=== PATIENT | female | born 1960 | race Two or more races ===

== ENCOUNTER 2017-04-18 04:04 | Observation (INO) | payer BC ==
[~2017-04-18] VITALS: Ht 149.9 cm; Wt 68.9 kg
[2017-04-18 05:40] LABS: Basophils # (auto) 0.1 uL; Basophils % (auto) 0.5 % (0.0-2.0); Eosinophils # (auto) 0 uL; Eosinophils % (auto) 0.3 % (0.0-7.0); Hematocrit 41.4 % (36.0-46.0); Hemoglobin 14.4 g/dL (12.2-16.2); Lymphocytes # (auto) 1.2 uL; Lymphocytes % (auto) 9.3 % (10.0-50.0); Mean Corpuscular Hemoglobin 30.5 pg (28.0-32.0); Mean Corpuscular Hgb Conc. 34.9 g/dL (32.0-36.0); Mean Corpuscular Volume 87.4 fL (80.0-100.0); Monocytes # (auto) 0.8 uL; Monocytes % (auto) 6.2 % (0.0-12.0); Neutrophils # (auto) 10.6 uL; Neutrophils % (auto) 83.7 % (37.0-80.0); Nucleated Red Blood Cells % 0.1 %; Platelet Count (auto) 334 10^3/uL (140-450); Red Cell Distribution Width 11.9 % (11.8-14.3); White Blood Cell 12.6 10^3/uL (4.4-10.8)
[2017-04-18 05:53] LABS: BUN/Creatinine Ratio 13.4; Bilirubin, Total 0.6 mg/dL (0.2-1.0); Calcium 8.8 mg/dL (8.5-10.1); Total Protein 7.7 g/dL (6.4-8.2)
[2017-04-18] MEDS ORDERED: ONDANSETRON HCL 4 MG/2 ML VIAL IV ONE (08:00)
[2017-04-18] MEDS ORDERED: MORPHINE SULFATE 4 MG/ML SYRG IV ONE (08:00)
[2017-04-18] MEDS ORDERED: SODIUM CHLORIDE 0.9% 1,000 ML IV ONE ×2 (08:14)
[2017-04-18] MEDS ORDERED: methylPREDNISolone SOD SUCC 125 MG/2 ML VL IV ONE (08:15)
[2017-04-18] MEDS ORDERED: PIPERACILLIN-TAZOB 3.375GM 50 ML IV ONE (08:15)
[2017-04-18] MEDS ORDERED: CLINDAMYCIN 600MG IV 50 ML IV ONE (08:15)
[2017-04-18] MEDS ORDERED: POTASSIUM CHL 10% (20 MEQ/15ML) 15ml ORAL SOLN PO ONE (08:30)
[2017-04-18] MEDS ORDERED: IOHEXOL 300 MG/ML 100ML BOTTLE IJ ONE (10:01)
[2017-04-18 10:11] LABS: Urine RBC None Seen /hpf (0 - 4)
[2017-04-18 10:29] LABS: Urine Bilirubin Negative (Negative); Urine Blood Negative /uL (Negative); Urine Color Yellow (Yellow); Urine Glucose 4+ mg/dL (Normal); Urine Ketone 4+ (Negative); Urine Mucus FEW (None Seen); Urine Nitrite Negative (Negative); Urine Squamous Epithelial Cell FEW /hpf (<5); Urine Urobilinogen Normal (Negative); Urine pH 5.5 (5.0-8.0)
[2017-04-18] MEDS ORDERED: InsuLIN REG 1unit/0.01ml Soln (100units/ml) IV ONE (12:15)
[2017-04-18] MEDS ORDERED: InsuLIN REG 1unit/0.01ml Soln (100units/ml) SC ONE (12:15)
== END 2017-04-18 13:26 | disposition left against medical advice (07) | DRG 603 ==
LOC: ER 04:07 → OVERFLOW 12:09 → ER 13:26
PROVIDERS: ADMIT Family Medicine; ATTEND Family Medicine
DX: L03.211 Cellulitis of face (principal); G43.909 Migraine, unspecified, not intractable, without status migrainosus; J45.909 Unspecified asthma, uncomplicated
CPT/HCPCS: 36415; 70486; 70487; 80053; 81001; 82962; 83036; 83605; 85025; 87040; 96361; 96365; 96366; 96368; 96375; 99285; G0378; J1815; J2270; J2405; J2543; J2930; J3490; J7030; Q9967